=== PATIENT | female | born 1975 | race Caucasian/White ===

== ENCOUNTER 2020-07-04 08:07 | Emergency (ER) | payer MEDICARE, MEDICAID ==
[2020-07-04] MEDS ORDERED: KETOROLAC TROMETHAMINE INJ 30 MG/ML VIAL IM ONE (08:32)
[2020-07-04] MEDS ORDERED: ONDANSETRON INJ 4 MG/2 ML VIAL IV ONE (08:32)
[2020-07-04] MEDS ORDERED: SODIUM CHLORIDE 0.9% 1000ML 1,000 ML IVS ONE (08:32)
[2020-07-04] MEDS ORDERED: KETOROLAC TROMETHAMINE INJ 30 MG/ML VIAL IV ONE (08:36)
--- NOTE | 2020-07-04 08:50 | RAD ---
EXAM: XR Chest, 1 View CLINICAL HISTORY: SOB TECHNIQUE: Frontal view of the chest. COMPARISON: No relevant prior studies available. FINDINGS: Lungs: The lungs are hyperinflated symmetrically. No consolidation. Pleural space: Unremarkable. No pneumothorax. Heart: Unremarkable. No cardiomegaly. Mediastinum: Unremarkable. Bones/joints: Unremarkable. IMPRESSION: Chronic changes as above. No acute disease. Electronically signed by: Carolyn Sanchez MD 07/04/2020 8:49 AM CDT
--- NOTE | 2020-07-04 08:50 | ED.PDOC ---
History of Present Illness - General Chief Complaint: General Stated Complaint: headache, shortness of breath, diarrhea Time Seen by Provider: 07/04/20 08:31 Source: patient Exam Limitations: no limitations Additional Information: The patient is a 44 year old who presents to the ED with multiple complaints. PMH is significant for anxiety, depression and migraines. She is a current every day smoker and she does not have a primary care provider. She states that she has been sick for around a month with symptoms including headache, sore throat, painful cervical lymphadenopathy, shortness of breath, productive cough, fever, nausea/vomiting, diarrhea. She states that her symptoms have been waxing and waning. She states that she will typically get better for a few days and then her symptoms will return. She states that she has been to an outside ER three times where she has had a negative chest xray, COVID testing x 2, monospot, flu and strep. She recently completed a course of azithromycin and decadron. She states that she did feel better for a few days but is currently having chest tightness, shortness of breath, chills, cough and congestion. She has not had any diarrhea or vomiting in over a week. She states that her temperature yesterday was 98 "which is a fever for me." She has not taken any antipyretics or other medications today. She denies any known sick contacts, travel, or known COVID exposure. No other history is available at this time. - History of Present Illness Timing/Duration: other - one month Severity: moderate Improving Factors: nothing Worsening Factors: nothing Associated Symptoms: fever/chills, headaches, loss of appetite, malaise, nausea/vomiting, weakness Allergies/Adverse Reactions: Allergies Penicillins Allergy (Verified 07/04/20 08:30) Home Medications: Ambulatory Orders Albuterol Inhaler [Ventolin Hfa Inhaler] 2 puff INH Q4HR PRN #1 inh 07/04/20 Dextromethorphan-Guaifenesin [Guaifenesin-Dm 100-10 mg/5Ml] 20 ml PO Q6HRS PRN #180 syp 07/04/20 Review of Systems - Review of Systems Constitutional: States: chills, fever, malaise, weakness EENTM: States: no symptoms reported Respiratory: States: cough, short of breath. Denies: wheezing Cardiology: States: chest pain. Denies: edema, palpitations, syncope Gastrointestinal/Abdominal: States: diarrhea, nausea, vomiting. Denies: abdominal pain Genitourinary: Denies: dysuria, frequency, hematuria, pain Musculoskeletal: States: muscle pain, muscle stiffness Skin: Denies: lesions, rash Neurological: States: depressed, headache, weakness - generalized. Denies: numbness, paresthesia Endocrine: States: no symptoms reported Hematologic/Lymphatic: States: swollen glands All other Systems: Reviewed and Negative Family Medical History - Family History Mother Family History: No Known Physical Exam - Physical Exam General Appearance: Anxious, No apparent distress Eye Exam: bilateral normal Ears, Nose, Throat: hearing grossly normal, normal pharynx, sinus pain/drainage, nasal congestion Neck: non-tender, full range of motion, lymphadenopathy (R), lymphadenopathy (L) Respiratory: chest non-tender, lungs clear, normal breath sounds, no respiratory distress, no accessory muscle use Cardiovascular/Chest: normal peripheral pulses, regular rate, rhythm, no edema, no JVD, no murmur Gastrointestinal/Abdominal: normal bowel sounds, non tender, soft Back Exam: normal inspection, no CVA tenderness Extremity: normal range of motion, non-tender, normal inspection, no pedal edema Neurologic: no motor/sensory deficits, alert, oriented x 3, depressed affect Skin Exam: normal color, warm/dry Progress - Progress Progress: 07/04/20 10:44 patient reassessed, workup as below. Viral tests pending at this time. CXR suggests COPD. No evidence for ACS. Reviewed findings with patient. Will treat symptomatically with albuterol, guaifenesin/dextromethorphan. Will hold steroids and antibiotics as she just completed a course within past few days. She declined zofran. Discussed importance of outpatient follow up with primary care for continued care and workup. Home care instructions and return indications reviewed. - Results/Orders Results/Orders: 07/04/20 08:31 Isolation:Airborne ONCE 07/04/20 09:44 RESPIRATORY PANEL 2 Stat 07/04/20 09:56 RESPIRATORY PANEL 2 Stat Laboratory Results - last 24 hr 07/04/20 07/04/20 07/04/20 08:54 08:54 08:54 WBC 7.8 RBC 4.37 Hgb 13.7 Hct 39.4 MCV 90.2 MCH 31.5 H MCHC 34.9 RDW 14.1 Plt Count 373 MPV 7.3 L Absolute Neuts (auto) 5.30 Absolute Lymphs (auto) 1.60 Absolute Monos (auto) 0.60 Absolute Eos (auto) 0.20 Absolute Basos (auto) 0.10 Neutrophils % 67.6 Lymphocytes % 20.7 Monocytes % 8.2 Eosinophils % 2.3 Basophils % 1.2 PTT (SP) 27.9 Sodium 137 Potassium 3.4 L Chloride 108 Carbon Dioxide 21 Anion Gap 11.4 L BUN < 5 L Creatinine 0.61 BUN/Creatinine Ratio 8.2 L Random Glucose 89 Serum Osmolality 270.6 L Calcium 8.5 Magnesium 1.8 Total Bilirubin 0.7 AST 16 ALT 13 Alkaline Phosphatase 84 LD Total 98 Creatine Kinase 19 L Troponin I C-Reactive Protein 1.3 H Serum Total Protein 6.8 Albumin 3.3 Globulin 3.5 Albumin/Globulin Ratio 0.9 L 07/04/20 08:54 WBC RBC Hgb Hct MCV MCH MCHC RDW Plt Count MPV Absolute Neuts (auto) Absolute Lymphs (auto) Absolute Monos (auto) Absolute Eos (auto) Absolute Basos (auto) Neutrophils % Lymphocytes % Monocytes % Eosinophils % Basophils % PTT (SP) Sodium Potassium Chloride Carbon Dioxide Anion Gap BUN Creatinine BUN/Creatinine Ratio Random Glucose Serum Osmolality Calcium Magnesium Total Bilirubin AST ALT Alkaline Phosphatase LD Total Creatine Kinase Troponin I < 0.02 C-Reactive Protein Serum Total Protein Albumin Globulin Albumin/Globulin Ratio - EKG/XRAY/CT XRAY: chest Xray Comments: COPD, no infiltrate Departure - Departure Clinical Impression: COPD (chronic obstructive pulmonary disease) Time of Disposition: 10:46 Disposition: Discharge to Home or Self Care Condition: Fair Departure Forms: ED Discharge - Pt. Copy, Patient Portal Self Enrollment Instructions: Chronic Obstructive Pulmonary Disease (COPD) (DC) Diet: resume usual diet Activity: increase activity as tolerated Prescriptions: Albuterol Inhaler [Ventolin Hfa Inhaler] 2 puff INH Q4HR PRN #1 inh PRN Reason: Shortness Of Breath Dextromethorphan-Guaifenesin [Guaifenesin-Dm 100-10 mg/5Ml] 20 ml PO Q6HRS PRN #180 syp PRN Reason: Cough Home Medications: Ambulatory Orders Albuterol Inhaler [Ventolin Hfa Inhaler] 2 puff INH Q4HR PRN #1 inh 07/04/20 Dextromethorphan-Guaifenesin [Guaifenesin-Dm 100-10 mg/5Ml] 20 ml PO Q6HRS PRN #180 syp 07/04/20
[2020-07-04 11:50] VITALS: TEMP 96.4
[2020-07-04 11:55] VITALS: BP 139/67; O2SAT 98
== END 2020-07-04 11:25 | disposition home or self-care (01) ==
LOC: ER 08:07
DX: J44.9 Chronic obstructive pulmonary disease, unspecified (principal); R51 Headache; R53.1 Weakness; R11.2 Nausea with vomiting, unspecified; R19.7 Diarrhea, unspecified; F32.9 Major depressive disorder, single episode, unspecified; F41.9 Anxiety disorder, unspecified; F17.200 Nicotine dependence, unspecified, uncomplicated; Z79.899 Other long term (current) drug therapy; Z88.0 Allergy status to penicillin; Z20.828 Contact with and (suspected) exposure to other viral communicable diseases
CPT/HCPCS: 36415; 71045; 80053; 82550; 83615; 83735; 84484; 85025; 85730; 86140; 87635; J1885; J2405; J7030